=== PATIENT | male | born 1960 | race Caucasian/White ===

== ENCOUNTER → 2019-08-09 | Outpatient (CLI) | payer BC ==
--- NOTE | 2019-08-09 11:58 | RAD ---
MR#: [id number] Date of Study: 08/09/2019 Ordering Physician: OG KIM, Referring Physician: KRISTY JENKINS Tech: SRAVANI Cutler ARRT (R) (N) APPROVED REPORT Test Type: Exercise Stress Nurse/Tech: Chapis Calhoun R.N. Test Indications: chest pain, htn Cardiac History: htn, smoker, dm Medications: see ehr Medical History: see ehr Resting ECG: sr Resting Heart Rate: 74 bpm Resting Blood Pressure: 144/77mmHg Pretest Chest Pain: No chest pain Nurse/Tech Notes lungs cta, heart tones regular Consent: The procedure was explained to the patient in lay terms. Informed consent was witnessed. Chris eout was entered into [employer]. History and Stress Test performed by SRAVANI Cutler ARRT (R) (N) Stress Symptoms No chest pain or symptoms. POST EXERCISE Reason for Termination: Reached target heart rate Target HR: Yes Max HR: 140 bpm 87% of Maximum Predicted HR: 161 bpm Exercise duration: 7:21 min:sec, 3 Stage Exercise capacity: 10.0METs Max Blood Pressure: 188/69mmHg Blood Pressure response to exercise: Normal blood pressure response during stress. Heart Rate response to exercise: normal Chest Pain: No. Arrhythmia: No. ST Change: Yes. ST depression in mult leads, at end of exercise, mostly resolved with recovery INTERPRETATION Stress EKG Conclusion: Baseline EKG showed sinus rhythm. Non-diagnostic changes at peak stress. No arrhythmias. Imaging Protocol IMAGE PROTOCOL: Rest Tc-99m/stress Tc-99m 1 day Rest: Stress: Viability: Radiopharm.Tc99m JggywsqtdLi06p Sestamibi Cszt82iTe 33mCi Img Date 08/09/2019 08/09/2019 Inj-Img [id number]. 60min. Rest Admin Site:IV - Right AntecubitalAdministrator:USHA Chavez (Stephanie)(N) Stress Admin Site: IV - Right AntecubitalAdministrator: SRAVANI Cutler ARRT (R)(N) STRESS DATA End Diast. Vol.136.0mlAv. Heart Rate87.0bpm End Syst. Vol.44.0mlCO Index BSA0.0L/min Myocardial Xbwn591.0gEject. Xahlnjjb26.0% Stress Rates Pk. Fill Rate3.56EDV/secLVtime Pk. Fill 161.45msec Pk. Empty Rate4.28ESV/secLVtime Pk. Nnqsu142.30msec 1/3 Pk. Fill1.19EDV/sec Stress Scores Regional WT0.00Summed WT0.00 Regional WM0.00Summed WM0.00 Study quality was good. Left Ventricular size was Normal at Rest and Stress. Lung uptake was . Left Ventricular ejection fraction is 68%. The rest and stress images show normal perfusion, normal contraction and thickening. LV Perf. Quant 17 Seg. SSS3.00 17 Seg. SRS0.00 17 Seg. SDS3.00 Stress Defect Extent (% LAD)1.90Rest Defect Extent (% LAD)0.00Rev. Defect Extent (% LAD)1.30 Stress Defect Extent (% LCX) 0.00Rest Defect Extent (% LCX)0.00Rev. Defect Extent (% LCX)0.00 Stress Defect Extent (% RCA)0.00Rest Defect Extent (% RCA)0.00Rev. Defect Extent (% RCA)0.00 Stress Defect Extent (% ZA)1.50Rest Defect Extent (% ZA)0.00Rev. Defect Extent (% ZA)0.90 Conclusion 1. Treadmill exercise cardioisotope stress test did not show any evidence of ischemia or infarct. 2. Normal left ventricular systolic function with ejection fraction calculated at 68%. 3. Low risk for cardiac events. Signed by : Major Carrizales, Electronically Approved : 08/09/2019 11:44:27
== END | disposition home or self-care (01) ==
LOC: NM 07:58
PROVIDERS: ATTEND Internal Medicine Cardiovascular Disease
DX: I10 Essential (primary) hypertension (principal); R07.9 Chest pain, unspecified; E11.9 Type 2 diabetes mellitus without complications; F17.200 Nicotine dependence, unspecified, uncomplicated
CPT/HCPCS: 78452; 93017; A9500